=== PATIENT | female | born 1955 | race Caucasian/White ===

== ENCOUNTER 2018-12-04 21:52 | Emergency (ER) | payer BC, OTHER ==
[~2018-12-04] VITALS: Ht 177.8 cm; Wt 95.7 kg
--- NOTE | 2018-12-04 22:15 | NUR ---
BIBFAMILY C/O SUBSTERNAL NONRADIATING CHEST PAIN X 30 MIN, PATIENT ALSO STATES HAVING SOB. PATIENT PLACED ON THE MONITOR, VITALS OBTAINED, SBP ELEVATED 170. SPO2 100% IN ROOM AIR. HAVE PATIENT CHANGED INTO A GOWN.
--- NOTE | 2018-12-04 22:20 | NUR ---
BLOOD DRAWN AND SENT TO LAB. IV ESTABLISHED ON LEFT AC.
[2018-12-04 22:28] LABS: BASOPHILS # (AUTO) 0.1 /CMM (0.0-0.2); BASOPHILS % (AUTO) 0.7 % (0.0-2.0); EOSINOPHILS % (AUTO) 1.2 % (0.0-6.0); HEMATOCRIT 42 % (33-45); HEMOGLOBIN 14.3 g/dL (11.5-14.8); LYMPHOCYTES % (AUTO) 20.3 % (20.0-44.0); MEAN CORPUSCULAR HGB CONC 34 g/dl (31.0-36.0); MEAN CORPUSCULAR VOLUME 90 fL (82-100); MONOCYTES # (AUTO) 0.8 /CMM (0.1-1.30); MONOCYTES % (AUTO) 8.1 % (2.0-12.0); NEUTROPHILS # (AUTO) 6.9 /CMM (1.8-8.9); NEUTROPHILS % (AUTO) 69.7 % (43.0-81.0); PLATELET COUNT (AUTO) 260 /CMM (150-450); RED BLOOD CELL COUNT(AUTO) 4.62 MIL/uL (4.0-5.2)
[2018-12-04 22:31] LABS: CALCIUM, SERUM 8.8 mg/dL (8.5-10.1); CARBON DIOXIDE 30 mmol/L (21-32); CHLORIDE 104 mmol/L (98-107); CREATININE 0.7 mg/dL (0.6-1.3); GLUCOSE 106 mg/dL (74-106); POTASSIUM 3.3 mmol/L (3.5-5.1); SODIUM SERUM 141 mmol/L (136-145); UREA NITROGEN, BLOOD 19 mg/dL (7-18)
[2018-12-04] MEDS ORDERED: MAG HYDROX/AL HYDROX/SIMETH 30 ML UDC ONE (22:39)
[2018-12-04] MEDS ORDERED: ONDANSETRON HCL/PF 4 MG/2 ML VIAL ONE (22:39)
[2018-12-04] MEDS ORDERED: LIDOCAINE VISCOUS 2% UD 15 ML UDC ONE (22:39)
[2018-12-04] MEDS ORDERED: MORPHINE SULFATE INJ 4 MG/ML DISP.SYRIN ONE (22:40)
[2018-12-04] MEDS ORDERED: ASPIRIN 81 MG TAB.CHEW ONE (22:40)
[2018-12-04] MEDS ORDERED: FAMOTIDINE/PF INJ 20 MG/2 ML VIAL IV ONE ×2 (22:40→23:00)
[2018-12-04 22:43] LABS: B-TYPE NATRIURETIC PEPTIDE 86 PG/ML (0-125)
[2018-12-04] MEDS ORDERED: IV NS 0.9% 1,000 ML BAG IV ONE (23:00)
[2018-12-04] MEDS ORDERED: MAG HYDROX/AL HYDROX/SIMETH 30 ML UDC PO ONE (23:00)
[2018-12-04] MEDS ORDERED: ONDANSETRON HCL/PF 4 MG/2 ML VIAL IVP ONE (23:00)
[2018-12-04] MEDS ORDERED: LIDOCAINE VISCOUS 2% UD 15 ML UDC MM ONE (23:00)
[2018-12-04] MEDS ORDERED: MORPHINE SULFATE INJ 2 MG/ML DISP.SYRIN IV ONE (23:00)
[2018-12-04] MEDS ORDERED: ASPIRIN EC 81 MG TABLET.DR PO ONE (23:00)
--- NOTE | 2018-12-04 23:35 | NUR ---
ENDORSED TO PAULA FOR ZELDA.
--- NOTE | 2018-12-05 01:15 | NUR ---
PHLEB AT BEDSIDE FOR REDRAW
--- NOTE | 2018-12-05 01:29 | NUR ---
TECH AT BEDSIDE FOR EKG
[2018-12-05 01:38] VITALS: BP 142/79
--- NOTE | 2018-12-05 02:04 | NUR ---
IV removed. Catheter intact and site benign. Pressure and 4x4 applied to site. No bleeding noted.Patient discharged to home in stable condition. Written and verbal after care instructions given. Patient verbalizes understanding of instruction. PT AMBULATORY WITH STEADY GAIT ACCOMPANIED BY FAMILY.
== END 2018-12-05 02:11 | disposition home or self-care (01) ==
LOC: ER 21:54
DX: R07.89 Other chest pain (principal); K80.20 Calculus of gallbladder without cholecystitis without obstruction; F32.9 Major depressive disorder, single episode, unspecified; F41.9 Anxiety disorder, unspecified; I34.1 Nonrheumatic mitral (valve) prolapse; Z98.890 Other specified postprocedural states
CPT/HCPCS: 36415 ×2; 71045; 76700; 80048; 83880; 84484 ×2; 85025; 93005 ×3; 96374; 99284; J3490; J7030; J2270; J2405